=== PATIENT | female | born 1950 | race Caucasian/White ===

== ENCOUNTER 2023-04-30 15:14 | Emergency (ER) | payer MEDICARE, OTHER ==
[2023-04-30 15:35] VITALS: BP 129/82; O2SAT 97
--- NOTE | 2023-04-30 16:31 | ED Physician Documentation ---
PD HPI UPPER EXT INJURY - Stated complaint Stated Complaint: LT FINGER LAC - Chief complaint Chief Complaint: Laceration - History obtained from History obtained from: Patient - History of Present Illness Location: Left, Finger (thumb) Type of injury: Laceration (She accidentally cut her dorsum of the thumb nailbed with a rotary peel oven tender at home. Bleeding to the area does not want to stop. She has a prior injury of the nail with removal so does not have an fingernail there per se just soft tissue.) Where injury occurred: Home Timing - onset: Today Timing - details: Abrupt onset, Still present (still some bleeding of the area.) Worsened by: Palpating Associated symptoms: No: Weakness, Numbness Review of Systems Neurologic: denies: Focal weakness, Numbness PD PAST MEDICAL HISTORY - Past Medical History Past Medical History: No - Past Surgical History Past Surgical History: No - Allergies Allergies/Adverse Reactions: Allergies Allergy/AdvReac Type Severity Reaction Status Date / Time No Known Drug Allergies Allergy Verified 04/30/23 15:31 - Social History Does the pt smoke?: No Smoking Status: Never smoker PD ED PE NORMAL - Vitals Vital signs reviewed: Yes - General General: Alert and oriented X 3, No acute distress, Well developed/nourished - Derm Derm: Normal color, Warm and dry - Extremities Extremities: Other (The left thumb dorsal nailbed with a soft tissue nailbed without a nail per se from chronic. There is a laceration extending from the radial side tissue through the nailbed with some mild bleeding. It does not expose the bone. No foreign bodies. It is 1.8 cm.) - Neuro Neuro: No motor deficit, No sensory deficit Results - Vitals Vitals: Vital Signs - 24 hr 04/30/23 15:29 Temperature 36.8 C Heart Rate 68 Respiratory 18 Rate Blood Pressure 129/82 H O2 Saturation 97 Procedures - Laceration (location) left thumb Length in cm: 1.8 Wound type: Linear, Into subcut fat, Clean Neurovascular status: Sensory intact, Motor intact, Vascular intact Anesthesia: Lidocaine 1% Wound preparation: Irrigated copiously NS, Wound explored, To the base Skin layer closure: Nylon, Interrupted, Size #-0 - enter number (4), Sutures - enter # (5) Other: Patient tolerated well, No complications, Neurovascular intact, Dressing applied, Tetanus UTD Departure - Departure Disposition: 01 Home, Self Care Clinical Impression: Thumb laceration Condition: Stable Record reviewed to determine appropriate education?: Yes Instructions: ED Laceration Hand Comments: It is okay to wash and shower. Clean off the wound twice a day with soap and water, or peroxide and water. Apply some antibiotic ointment to it to keep it moist. Also to watch for signs of infection such as purulence, redness or increasing pain. Return to your primary care or the ER at the specified time for suture removal.. Suture removal 8 to 10 days. Tylenol ibuprofen as needed for pains. Forms: PCP List
[2023-04-30] MEDS ORDERED: LIDOCAINE 1% 2 ML VIAL SUBQ STA (17:11)
== END 2023-04-30 18:07 | disposition home or self-care (01) ==
LOC: ED 15:14
DX: S61.012A Laceration without foreign body of left thumb without damage to nail, initial encounter (principal); W45.8XXA Other foreign body or object entering through skin, initial encounter; Y92.009 Unspecified place in unspecified non-institutional (private) residence as the place of occurrence of the external cause
CPT/HCPCS: 12001; 99282